=== PATIENT | female | born 2000 | race Caucasian/White ===

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

== ENCOUNTER 2020-01-21 08:07 | Emergency (ER) | payer OTHER ==
--- NOTE | 2020-01-21 08:26 | UC ---
Nausea/Vomiting/Diarrhea HPI - HPI Summary HPI Summary: Onset of severe vomiting and diarrhea at 1 am, about 8 to 10 hours after eating chicken on the [facility]. She has had at least 8 episodes of emesis, last voided about 7 or 8 hours ago, and continues to feel unwell with abdominal cramping. She has had bright red blood in her stools. - History of Current Complaint Chief Complaint: UCGI Stated Complaint: POS SAMONELLA Time Seen by Provider: 01/21/20 08:23 Hx Obtained From: Patient Hx Last Menstrual Period: 12/02/19 Onset/Duration: Sudden Onset, Lasting Hours - about 16 Timing: Intermittent Episodes Lasting: Severity Initially: Moderate Severity Currently: Moderate Pain Intensity: 6 Location: Discrete At: LLQ - mild tenderness in lower abdomen, left greater than right. Character: Cramping Aggravating Factor(s): Food, Other: - water Alleviating Factor(s): Nothing Nausea/Vomiting Presence: Nauseated, Vomiting Vomiting Frequency: Every 15-60 minutes Nausea/Vomiting Duration: 12-24 hours - Allergies/Home Medications Allergies/Adverse Reactions: Allergies Allergy/AdvReac Type Severity Reaction Status Date / Time No Known Allergies Allergy Verified 01/21/20 08:21 Home Medications: Home Medications Ondansetron ODT TAB* [Zofran 4 MG Odt TAB*] 4 mg PO Q6H PRN #10 tab.odt [Rx] PMH/Surg Hx/FS Hx/Imm Hx Previously Healthy: Yes - Surgical History Surgical History: Yes Surgery Procedure, Year, and Place: ACL RECONSTRUCTION LEFT KNEE. RT ARM BICEP TENDON REPAIR - Family History Known Family History: Positive: Hypertension - Social History Occupation: Student Lives: Dormitory/Roommates Alcohol Use: Rare Substance Use Type: None Smoking Status (MU): Never Smoked Tobacco Review of Systems All Other Systems Reviewed And Are Negative: Yes Constitutional: Positive: Chills, Fatigue Skin: Positive: Negative Eyes: Positive: Negative ENT: Positive: Negative Respiratory: Positive: Negative Cardiovascular: Positive: Negative Gastrointestinal: Positive: Abdominal Pain, Vomiting, Diarrhea, Nausea Genitourinary: Positive: Other - treatment of UTI about 1-2 weeks ago--resolved. Motor: Positive: Negative Neurovascular: Positive: Negative Musculoskeletal: Positive: Negative Neurological/Mental Status: Positive: Negative Psychological: Positive: Negative Is Patient Immunocompromised?: No Physical Exam Triage Information Reviewed: Yes Appearance: Ill-Appearing - looks pale and mildly unwell Vital Signs: Initial Vital Signs Temp 98.3 F 01/21/20 08:17 Pulse 99 01/21/20 08:17 Resp 20 01/21/20 08:17 BP 125/76 01/21/20 08:17 Pulse Ox 99 01/21/20 08:17 Vital Signs Reviewed: Yes Eyes: Positive: Conjunctiva Clear ENT: Positive: Pharynx normal, Other - mucous membranes mildly dry Neck: Positive: Supple, Nontender, No Lymphadenopathy Respiratory: Positive: Lungs clear, Normal breath sounds Cardiovascular: Positive: RRR, No Murmur Abdomen Description: Positive: No Organomegaly, Soft, Other: - mild tenderness to palpation in the LLQ. Negative: Distended, Guarding, Peritoneal Signs Bowel Sounds: Positive: Present Musculoskeletal Exam: Normal Neurological Exam: Normal Psychological Exam: Normal Skin Exam: Normal Re-Evaluation - Re-Evaluation First Eval Re-Evaluation Time: 11:50 Change: Improved Comment: persistent nausea, no further vomiting, decreased abdominal cramping. Naus/Vom/Diarrhea Course/Dx - Course Course Of Treatment: Iv fluids given with improvement, although nausea persists. Will continue oral rehydrartion at home and submit stool samples. follow up in ER if continued problems with vomiting and diarrhea. - Differential Dx/Diagnosis Differential Diagnoses - Female: Gastroenteritis (Viral), Gastroenteritis ( Bacterial), Diarrhea Provider Diagnosis: Gastroenteritis Discharge ED - Sign-Out/Discharge Documenting (check all that apply): Patient Departure All imaging exams completed and their final reports reviewed: No Studies - Discharge Plan Condition: Stable Disposition: HOME Prescriptions: Ondansetron ODT TAB* [Zofran 4 MG Odt TAB*] 4 mg PO Q6H PRN #10 tab.odt PRN Reason: Nausea Patient Education Materials: Gastroenteritis (ED), Nutrition Tips for Relief of Diarrhea (ED) Forms: *School Release Referrals: No Primary Care Phys,NOPCP [Primary Care Provider] - Additional Instructions: Continue oral rehydration; you can garbage pick up worker oral rehydration solution at the pharmacy, or use clear soup, rigoberto ruth, gatorade or teas. Continue use of ondansetron for nausea and vomiting. Follow up in the emergency room if you have recurrent vomiting. Please submit stool samples for evaluation due to risk of bacterial enteritis. - Billing Disposition and Condition Condition: STABLE Disposition: Home
[2020-01-21] MEDS ORDERED: NS 0.9% 1000 ML** 1,000 ML IV ONE (08:39)
[2020-01-21] MEDS ORDERED: Ondansetron ODT TAB* 4 MG PO ONE (08:39)
[2020-01-21 11:10] VITALS: BP 112/64
[2020-01-21] MEDS ORDERED: Ondansetron INJ* 2 MG/ML VIAL IV ONE (11:49)
== END 2020-01-21 13:03 | disposition home or self-care (01) ==
LOC: UCCORT 08:07
DX: K52.9 Noninfective gastroenteritis and colitis, unspecified (principal)
CPT/HCPCS: 96360; 99212; A9270-GY; G0463; J2405